=== PATIENT | female | born 1965 | race Caucasian/White ===

== ENCOUNTER → 2016-05-19 | Outpatient (REF) | payer BC ==
[~2016-05-19] MED LIST: ACET65TA; ADVAIR100 INHALATION; ALBUTEROL INHALATION; ALLEGRA PO; AMO500 PO; ASTELIN NASAL; ATENOL25 PO; BACTRIMDS PO; BEXTRA PO; CELEXA20 PO; CLARINEX PO; DARVOCET-N PO; DOXYCYC100 PO; EFFEXORXL1 PO; EFFEXORXL7 PO; FLEXERIL10 PO; FLONASESPR NASAL; IMITREX50 PO; LEXAPRO10 PO; MOTR200T4; MOTRIN600 PO; NAPROSY500 PO; NASACORT NASALLY; NASACORTAQ NASALLY; NASONEX NASAL; No Historical Meds; PATANOL OPHTH; PEPCID40 PO; PROVENTIL INHALATION; PROVENTILI PO; TUSSIONEX PO; VOLTAREN PO; ZITHROZPAK PO; ZOLOFT100 PO; ZOLOFT50 PO; [UNRECOGNIZED DRUG - OTHER]
[2016-05-19 16:21] LABS: INR 0.99
== END ==
LOC: M LABDRAW1 15:17
PROVIDERS: ATTEND Physical Medicine & Rehabilitation
DX: Z01.818 Encounter for other preprocedural examination (principal)

== ENCOUNTER → 2016-06-02 | Outpatient (CLI) | payer BC ==
--- NOTE | 2016-06-02 11:28 | REPMRS ---
Patient History Family history of breast cancer in mother at age 57. Benign excisional biopsy of the left breast, 1994. Benign excisional biopsy of the left breast, 1987. Taking unspecified hormones for 3 years. Digital Woman Screen Mammo: June 02, 2016 - Exam #: [id number] Bilateral CC and MLO view(s) were taken. Technologist: Alexandra Jane, Technologist Prior study comparison: March 17, 2015, digital woman screen mammo performed at [facility]. January 11, 2013, digital woman screen mammo performed at [facility]. FINDINGS: The breast tissue is extremely dense which could obscure a lesion on mammography. There is no evidence of cancer on this mammogram. Given the family history and dense breast parenchyma, I would recommend an MRI of the breasts. ASSESSMENT: BI-RADS/ACR category 2 mammogram. Benign finding(s). Given the family history and dense breast parenchyma, I would recommend an MRI of the breasts. Recommendation Routine screening mammogram of both breasts in 1 year (for women over age 40). This mammogram was interpreted with the aid of an FDA-approved computer-aided dectection system. Electronically Signed By: Shaheed Padilla MD 06/02/16 [id number]
== END ==
LOC: M WHC 09:24
PROVIDERS: ATTEND Nurse Practitioner Family
DX: R92.2 Inconclusive mammogram (principal); Z80.3 Family history of malignant neoplasm of breast

== ENCOUNTER → 2016-08-31 | Outpatient (CLI) | payer BC ==
[2016-08-31 13:42] LABS: ALBUMIN 4.4 GM/DL (3.2-5.2); ALBUMIN/GLOBULIN RATIO 1.29 (1.00-1.93); ALKALINE PHOSPHATASE 57 U/L (45-117); ALT/SGPT 58 U/L (12-78); ANION GAP 8 MEQ/L (8-16); AST/SGOT 26 U/L (15-37); BILIRUBIN,TOTAL 0.4 MG/DL (0.2-1.0); BLOOD UREA NITROGEN 15 MG/DL (7-18); CARBON DIOXIDE LEVEL 28 MEQ/L (21-32); CHLORIDE LEVEL 103 MEQ/L (98-107); CHOLESTEROL LEVEL 271 MG/DL (<200); CREATININE FOR GFR 0.77 MG/DL (0.55-1.02); GLOMERULAR FILTRATION RATE > 60.0 (>58); GLUCOSE, FASTING 95 MG/DL (70-105); POTASSIUM SERUM 4.9 MEQ/L (3.5-5.1); SODIUM LEVEL 139 MEQ/L (136-145); TOTAL PROTEIN 7.8 GM/DL (6.4-8.2); TRIGLYCERIDES LEVEL 316 MG/DL (<150)
[2016-08-31 13:45] LABS: MEAN CORPUSCULAR HEMOGLOBIN 31.1 pg (27.0-33.0); MEAN CORPUSCULAR HGB CONC 33.5 g/dl (32.0-36.5); MEAN CORPUSCULAR VOLUME 92.8 fl (80.0-96.0); RED CELL DISTRIBUTION WIDTH 11.9 % (11.5-14.5); WHITE BLOOD COUNT 8.1 K/mm3 (4.0-10.0)
== END ==
LOC: M SMT 08:28
PROVIDERS: ATTEND Family Medicine
DX: E78.2 Mixed hyperlipidemia (principal); Z13.0 Encounter for screening for diseases of the blood and blood-forming organs and certain disorders involving the immune mechanism

== ENCOUNTER 2017-01-07 08:56 | Outpatient (CLI) | payer BC ==
[~2017-01-07] VITALS: Ht 167.6 cm; Wt 85.5 kg
[~2017-01-07 08:56] MED LIST changes: +ALEV220T26 PO; +ESTR1DIS3 TOP; +GABA-282 PO; +LISI10TA4 PO; +MULT1TAB10 PO
[2017-01-07] MEDS ORDERED: NS 1,000 ML IV ONE (09:00)
--- NOTE | 2017-01-07 09:58 | ROOR ---
Patient Name: Karolina Silva Procedure Date: 01/07/2017 9:42 AM Date of : 1965 Age: 51 Room: [facility] Gender: Female Note Status: Finalized Procedure: Total Colonoscopy to Cecum Indications: Screening for colorectal malignant neoplasm Providers: Jose Cardoza MD Referring MD: Emily SMITH DO Requesting Provider: Medicines: Monitored Anesthesia Care Complications: No immediate complications. Procedure: Pre-Anesthesia Assessment: - The heart rate, respiratory rate, oxygen saturations, blood pressure, adequacy of pulmonary ventilation, and response to care were monitored throughout the procedure. The Colonoscope was introduced through the anus and advanced to the cecum, identified by appendiceal orifice and ileocecal valve. The colonoscopy was performed without difficulty. The patient tolerated the procedure well. The quality of the bowel preparation was excellent. Findings: The perianal and digital rectal examinations were normal. Non-bleeding internal hemorrhoids were found during retroflexion. The hemorrhoids were small and Grade I (internal hemorrhoids that do not prolapse). Multiple small and large-mouthed diverticula were found in the recto-sigmoid colon, sigmoid colon and descending colon. The exam was otherwise without abnormality on direct and retroflexion views. Impression: - Non-bleeding internal hemorrhoids. - Diverticulosis in the recto-sigmoid colon, in the sigmoid colon and in the descending colon. - The examination was otherwise normal on direct and retroflexion views. - No specimens collected. - The exam was otherwise normal to the cecum. Recommendation: - Patient has a contact number available for emergencies. The signs and symptoms of potential delayed complications were discussed with the patient. Return to normal activities tomorrow. Written discharge instructions were provided to the patient. - High fiber diet. - Discharge patient to home. - Continue present medications. - Repeat colonoscopy in 10 years for screening purposes. - Return to referring physician. - The findings and recommendations were discussed with the patient's family. Jose Cardoza MD Jose Cardoza MD 01/07/2017 9:58:22 AM This report has been signed electronically. Number of Addenda: 0 Note Initiated On: 01/07/2017 9:42 AM Estimated Blood Loss: Estimated blood loss: none.
[2017-01-07] MEDS ORDERED: PROPOFOL 200 MG/20 ML VIAL As Ordered ONE (10:03)
[2017-01-07 10:27] VITALS: BP 118/76
== END 2017-01-07 10:29 | disposition home or self-care (01) ==
LOC: M OPP 08:56
PROVIDERS: ATTEND Internal Medicine Gastroenterology
DX: Z12.11 Encounter for screening for malignant neoplasm of colon (principal); K64.0 First degree hemorrhoids; K57.30 Diverticulosis of large intestine without perforation or abscess without bleeding; I10 Essential (primary) hypertension; Z80.3 Family history of malignant neoplasm of breast; Z79.899 Other long term (current) drug therapy

== ENCOUNTER → 2017-07-08 | Outpatient (CLI) | payer BC | LOC: M WHC 12:58 | DX: Z12.31 Encounter for screening mammogram for malignant neoplasm of breast (principal) | CPT/HCPCS: 77067 ==

== ENCOUNTER → 2017-08-12 | Outpatient (CLI) | payer BC ==
[2017-08-12 08:18] LABS: BASO # 0.1 10^3/uL (0.0-0.2); BASO % 0.7 % (0.0-1.0); EOS # 0.4 10^3/uL (0.0-0.50); EOS % 5.2 % (0.0-3.0); HEMATOCRIT 37.9 % (36.0-47.0); HEMOGLOBIN 12.6 g/dl (12.0-15.5); IMMATURE GRANULOCYTE % 0.3 % (0-3.0); LYMPH # 3.4 10^3/uL (1.5-4.5); LYMPH % 46.5 % (24.0-44.0); MEAN CORPUSCULAR HEMOGLOBIN 30.7 pg (27.0-33.0); MEAN CORPUSCULAR HGB CONC 33.2 g/dl (32.0-36.5); MEAN CORPUSCULAR VOLUME 92.4 fl (80.0-96.0); MONO # 0.5 10^3/uL (0.0-0.8); MONO % 6.7 % (0.0-5.0); NEUTROPHILS % 40.6 % (36.0-66.0); PLATELET COUNT, AUTOMATED 274 10^3/uL (150-450); RED CELL DISTRIBUTION WIDTH 11.9 % (11.5-14.5); WHITE BLOOD COUNT 7.3 10^3/uL (4.0-10.0)
[2017-08-12 09:00] LABS: ALBUMIN 4.3 GM/DL (3.2-5.2); ALBUMIN/GLOBULIN RATIO 1.23 (1.00-1.93); ALKALINE PHOSPHATASE 50 U/L (45-117); ALT/SGPT 26 U/L (12-78); ANION GAP 6 MEQ/L (8-16); AST/SGOT 15 U/L (7-37); BILIRUBIN,TOTAL 0.4 MG/DL (0.2-1.0); BLOOD UREA NITROGEN 23 MG/DL (7-18); CARBON DIOXIDE LEVEL 28 MEQ/L (21-32); CHLORIDE LEVEL 106 MEQ/L (98-107); CHOLESTEROL LEVEL 230 MG/DL (<200); CHOLESTEROL RISK RATIO 4.423 (<5); CREATININE FOR GFR 0.82 MG/DL (0.55-1.30); FREE T4 0.82 NG/DL (0.76-1.46); GLOMERULAR FILTRATION RATE > 60.0 (>51); GLUCOSE, FASTING 100 MG/DL (70-100); HDL CHOLESTEROL 52 MG/DL (>40); LDL CHOLESTEROL 137.8 MG/DL (<100); NON-HDL-C 178 MG/DL; POTASSIUM SERUM 4.7 MEQ/L (3.5-5.1); SODIUM LEVEL 140 MEQ/L (136-145); TOTAL PROTEIN 7.8 GM/DL (6.4-8.2); TRIGLYCERIDES LEVEL 201 MG/DL (<150)
== END ==
LOC: M LAB 07:02
DX: Z13.220 Encounter for screening for lipoid disorders (principal)
CPT/HCPCS: 84443

== ENCOUNTER → 2017-11-04 | Outpatient (REF) | payer OTHER, BC ==
[2017-11-04 12:22] LABS: CREATININE FOR GFR 0.77 MG/DL (0.55-1.30); GLOMERULAR FILTRATION RATE > 60.0 (>51)
[2017-11-04 12:22] LABS: BLOOD UREA NITROGEN 17 MG/DL (7-18)
== END ==
LOC: M LABDRAW1 11:42
DX: M47.817 Spondylosis without myelopathy or radiculopathy, lumbosacral region (principal)

== ENCOUNTER → 2017-11-11 | Outpatient (REF) | payer OTHER, BC ==
[2017-11-11 17:04] LABS: CREATININE FOR GFR 0.81 MG/DL (0.55-1.30); GLOMERULAR FILTRATION RATE > 60.0 (>51)
[2017-11-11 17:04] LABS: BLOOD UREA NITROGEN 18 MG/DL (7-18)
== END ==
LOC: M LABDRAW1 15:30
DX: M47.817 Spondylosis without myelopathy or radiculopathy, lumbosacral region (principal)

== ENCOUNTER → 2017-12-07 | Outpatient (REF) | payer BC ==
[2017-12-07 19:02] LABS: TOTAL 25(OH) VITAMIN D 41.8 NG/ML (30.0-100.0)
[2017-12-07 19:05] LABS: FREE T4 0.95 NG/DL (0.76-1.46)
== END ==
LOC: M LABDRAW1 17:21
DX: E55.9 Vitamin D deficiency, unspecified (principal)
CPT/HCPCS: 84443

== ENCOUNTER → 2018-01-09 | Outpatient (CLI) | payer BC ==
[~2018-01-09] MED LIST changes: -ACET65TA; -ADVAIR100 INHALATION; -ALBUTEROL INHALATION; -ALEV220T26 PO; -ALLEGRA PO; -AMO500 PO; -ASTELIN NASAL; -ATENOL25 PO; -BACTRIMDS PO; -BEXTRA PO; -CELEXA20 PO; -CLARINEX PO; -DARVOCET-N PO; -DOXYCYC100 PO; -EFFEXORXL1 PO; -EFFEXORXL7 PO; -ESTR1DIS3 TOP; -FLEXERIL10 PO; -FLONASESPR NASAL; -GABA-282 PO; -IMITREX50 PO; -LEXAPRO10 PO; -LISI10TA4 PO; -MOTR200T4; -MOTRIN600 PO; -MULT1TAB10 PO; -NAPROSY500 PO; -NASACORT NASALLY; -NASACORTAQ NASALLY; -NASONEX NASAL; -No Historical Meds; -PATANOL OPHTH; -PEPCID40 PO; +PROHANCE 279.3MG/ML 15ML VIAL (A9576) As Ordered; +PROHANCE 279.3MG/ML 5ML VIAL (A9576) As Ordered; -PROVENTIL INHALATION; -PROVENTILI PO; -TUSSIONEX PO; -VOLTAREN PO; -ZITHROZPAK PO; -ZOLOFT100 PO; -ZOLOFT50 PO; -[UNRECOGNIZED DRUG - OTHER]
== END ==
LOC: M RAD 09:46
DX: R92.2 Inconclusive mammogram (principal); Z91.89 Other specified personal risk factors, not elsewhere classified
CPT/HCPCS: A9576

== ENCOUNTER → 2018-04-03 | Outpatient (REF) | payer BC ==
[~2018-04-03] MED LIST changes: +ACET65TA; +ADVAIR100 INHALATION; +ALBUTEROL INHALATION; +ALEV220T26 PO; +ALLEGRA PO; +AMO500 PO; +ASTELIN NASAL; +ATENOL25 PO; +BACTRIMDS PO; +BEXTRA PO; +CELEXA20 PO; +CLARINEX PO; +DARVOCET-N PO; +DOXYCYC100 PO; +EFFEXORXL1 PO; +EFFEXORXL7 PO; +ESTR1DIS3 TOP; +FLEXERIL10 PO; +FLONASESPR NASAL; +GABA-843 PO; +IMITREX50 PO; +LEXAPRO10 PO; +LISI10TA4 PO; +MOTR200T4; +MOTRIN600 PO; +MULT1TAB10 PO; +NAPROSY500 PO; +NASACORT NASALLY; +NASACORTAQ NASALLY; +NASONEX NASAL; +No Historical Meds; +PATANOL OPHTH; +PEPCID40 PO; -PROHANCE 279.3MG/ML 15ML VIAL (A9576) As Ordered; -PROHANCE 279.3MG/ML 5ML VIAL (A9576) As Ordered; +PROVENTIL INHALATION; +PROVENTILI PO; +TUSSIONEX PO; +VOLTAREN PO; +ZITHROZPAK PO; +ZOLOFT100 PO; +ZOLOFT50 PO; +[UNRECOGNIZED DRUG - OTHER]
[2018-04-03 12:38] LABS: BASO # 0.1 10^3/uL (0.0-0.2); BASO % 0.9 % (0.0-1.0); EOS # 0.4 10^3/uL (0.0-0.50); EOS % 5.8 % (0.0-3.0); HEMATOCRIT 39.1 % (36.0-47.0); HEMOGLOBIN 12.7 g/dl (12.0-15.5); LYMPH # 3.1 10^3/uL (1.5-4.5); MEAN CORPUSCULAR HEMOGLOBIN 30.4 pg (27.0-33.0); MEAN CORPUSCULAR HGB CONC 32.5 g/dl (32.0-36.5); MEAN CORPUSCULAR VOLUME 93.5 fl (80.0-96.0); MONO # 0.5 10^3/uL (0.0-0.8); MONO % 6.8 % (0.0-5.0); NEUTROPHILS # 2.9 10^3/uL (1.8-7.7); NEUTROPHILS % 42.2 % (36.0-66.0); PLATELET COUNT, AUTOMATED 272 10^3/uL (150-450); RED BLOOD COUNT 4.18 10^6/uL (4.00-5.40); WHITE BLOOD COUNT 6.9 10^3/uL (4.0-10.0)
[2018-04-03 12:48] LABS: ALT/SGPT 40 U/L (12-78); BILIRUBIN,TOTAL 0.4 MG/DL (0.2-1.0); BLOOD UREA NITROGEN 16 MG/DL (7-18); CALCIUM LEVEL 8.9 MG/DL (8.5-10.1); CARBON DIOXIDE LEVEL 28 MEQ/L (21-32); CHLORIDE LEVEL 103 MEQ/L (98-107); CHOLESTEROL LEVEL 240 MG/DL (<200); CHOLESTEROL RISK RATIO 5.714 (<5); CREATININE FOR GFR 0.72 MG/DL (0.55-1.30); FREE T4 1.06 NG/DL (0.76-1.46); GLOMERULAR FILTRATION RATE > 60.0 (>51); GLUCOSE, FASTING 96 MG/DL (70-100); HDL CHOLESTEROL 42 MG/DL (>40); LDL CHOLESTEROL 140 MG/DL (<100); NON-HDL-C 198 MG/DL; POTASSIUM SERUM 4.6 MEQ/L (3.5-5.1); SODIUM LEVEL 139 MEQ/L (136-145); TOTAL PROTEIN 7.3 GM/DL (6.4-8.2); TRIGLYCERIDES LEVEL 289 MG/DL (<150)
[2018-04-03 12:50] LABS: TOTAL 25(OH) VITAMIN D 47.2 NG/ML (30.0-100.0)
== END ==
LOC: M LABDRAW1 09:13
PROVIDERS: ATTEND Family Medicine
DX: E03.9 Hypothyroidism, unspecified (principal); E55.9 Vitamin D deficiency, unspecified; I10 Essential (primary) hypertension; E78.2 Mixed hyperlipidemia

== ENCOUNTER → 2018-08-24 | Outpatient (REF) | payer BC, OTHER ==
[2018-08-24 13:21] LABS: BLOOD UREA NITROGEN 17 MG/DL (7-18); GLOMERULAR FILTRATION RATE > 60.0 (>51)
== END ==
LOC: M LABDRAW1 12:01
PROVIDERS: ATTEND Physician Assistant
DX: M47.817 Spondylosis without myelopathy or radiculopathy, lumbosacral region (principal)

== ENCOUNTER → 2018-09-25 | Outpatient (REF) | payer BC ==
[2018-09-27 14:09] LABS: HPV HYBRID CAPTURE II Negative (Negative)
== END ==
LOC: M SFHCWAGY 11:29
PROVIDERS: ATTEND Nurse Practitioner Family
DX: Z12.72 Encounter for screening for malignant neoplasm of vagina (principal)
CPT/HCPCS: 87624; G0123

== ENCOUNTER → 2019-05-03 | Outpatient (CLI) | payer BC ==
[~2019-05-03] MED LIST changes: +PROHANCE 279.3MG/ML 15ML VIAL (A9576) As Ordered ONE; +PROHANCE 279.3MG/ML 5ML VIAL (A9576) As Ordered ONE
--- NOTE | 2019-05-03 11:11 | REP ---
BILATERAL BREAST MRI STUDY WITHOUT AND WITH IV GADOLINIUM: HISTORY: High risk breast cancer screening. Comparison mammography July 08, 2017. Comparison breast MRI study January 09, 2018. TECHNIQUE: Three Beth MRI imaging was performed with a dedicated breast coil. Axial, coronal, and sagittal T1 and T2-weighted scans were obtained with and without fat saturation in the usual fashion. The study includes dynamically acquired post gadolinium enhanced imaging subtraction imaging. Maximal intensity projection and multiplanar re-formation imaging is included as well. The study was interpreted with the aid of BDNAD, an FDA approved computer-aided detection (CAD) software program, on a dedicated breast MRI work station. The gadolinium enhancement dose is 18 mL of intravenous ProHance. FINDINGS: There is an extensive fibroglandular tissue pattern corresponding with the dense breast tissue mammographically. There is mild background parenchymal enhancement. There is no evidence of significant cystic change or axillary or internal mammary adenopathy on either side. No suspicious morphologic abnormality has developed in either breast. There is no area of suspicious contrast enhancement and washout in either breast on dynamically acquired post contrast images. Subtraction images show no additional abnormality. IMPRESSION: Stable BIRADS category 1 negative findings. Electronically Signed by Giuseppe Rae MD 05/03/2019 11:38 A
== END ==
LOC: M RAD 08:53
PROVIDERS: ATTEND Nurse Practitioner Family
DX: Z91.89 Other specified personal risk factors, not elsewhere classified (principal)
CPT/HCPCS: A9576; C8908

== ENCOUNTER → 2019-09-28 | Outpatient (CLI) | payer BC ==
[~2019-09-28] MED LIST changes: -PROHANCE 279.3MG/ML 15ML VIAL (A9576) As Ordered ONE; -PROHANCE 279.3MG/ML 5ML VIAL (A9576) As Ordered ONE
--- NOTE | 2019-09-28 14:30 | REP ---
LEFT HAND, FOUR VIEWS: There is no evidence of an acute fracture, dislocation or intrinsic bone disease. IMPRESSION: No fracture or dislocation. Electronically Signed by Shaheed Padilla MD 10/02/2019 06:34 P
== END ==
LOC: M ADAMS 12:56
PROVIDERS: ATTEND Physician Assistant
DX: M25.542 Pain in joints of left hand (principal)

== ENCOUNTER → 2020-12-23 | Outpatient (CLI) | payer OTHER ==
[~2020-12-23] MED LIST changes: +GABA-282 PO; -GABA-843 PO; +LISI10TA22 PO; -LISI10TA4 PO
--- NOTE | 2020-12-23 09:15 | REPVR ---
PROCEDURE INFORMATION: Exam: MR Lumbar Spine Without Contrast Exam date and time: 12/23/2020 8:09 AM Age: 55 years old Clinical indication: Low back pain; Additional info: Spinal stenosis, R/O hnp TECHNIQUE: Imaging protocol: Multiplanar magnetic resonance images of the lumbar spine without intravenous contrast. COMPARISON: MRI-Spine, L.S. without con 01/07/2016 11:36 AM FINDINGS: Vertebrae: Evaluation of the marrow demonstrates no evidence of acute fracture line, high-grade compression deformity, worrisome malalignment, or marrow edema. Stable retrolisthesis at L5-S1 with Modic type 3 changes in the endplates here. Moderate posterior element hypertrophic changes at multiple levels. Generally benign marrow signal on the T1 weighted images. Spinal epidural space: No evidence of arachnoiditis or epidural fluid. Spinal cord: The conus terminates at L2 without abnormal cord signal. T12-L1: At T12-L1 there is mild bulging of the disc without significant mass effect, comparable to the previous. L1-L2: At L1-L2, minimal bulging disc is present without significant mass effect. L2-L3: At L2-L3, minimal bulging disc is present without significant mass effect. L3-L4: At L3-L4, I see no significant abnormality. L4-L5: At L4-L5, minimal bulging disc is present right greater than left extending into the foramina on the right with mild to moderate foraminal encroachment, new relative to the prior. L5-S1: At L5-S1, a broadly bulging disc is approaching but not definitively contacting the traversing S1 nerve roots bilaterally. Mild central stenosis with moderate to severe left and moderate right foraminal encroachment, all increased relative to the prior. Sacrum/coccyx: Hemangioma along the left side of S1. Symmetric SI joints. Soft tissues: Paraspinal muscular atrophy without paraspinal mass. Disc desiccation and loss of the disc space at L5-S1. IMPRESSION: 1. New disc abnormality with mass effect in the foramina at L4-L5 on the right. 2. Worsening disc abnormality at L5-S1 with increased mass effect. 3. Degenerative changes. 4. No abnormal cord signal. Electronically signed by: Km Mascorro On 12/23/2020 09:15:03 AM
== END ==
LOC: M RAD 07:34
PROVIDERS: ATTEND Physician Assistant
DX: M48.07 Spinal stenosis, lumbosacral region (principal); M51.36 Other intervertebral disc degeneration, lumbar region

== ENCOUNTER 2021-02-11 09:53 | Outpatient (CLI) | payer BC ==
[~2021-02-11] VITALS: Ht 165.7 cm; Wt 93.0 kg
[~2021-02-11 09:53] MED LIST changes: +ALBUTEROL 90 MCG/ACT 8GM HFA INHALER INH PRN; +ALBUTEROL SULFATE 2.5 MG/0.5 ML INH NEB SOLN INH PRN; +EPINEPHrine INJ 1 MG/ML 1ML AMP IM PRN; +NS 1,000 ML IV SCH; +diphenhydrAMINE 50MG/ML VIAL (J1200) IV PRN; +methylPREDNISolone 125MG 2ML VIAL IV PRN
[2021-02-11] MEDS ORDERED: BAMLANIVIMAB 700 MG, ETESEVIMAB 1,400 MG in NS 250 ML IV ONE (10:30)
[2021-02-11 10:52] VITALS: BP 132/73
[2021-02-11 11:22] VITALS: BP 136/72
[2021-02-11 11:52] VITALS: BP 122/73
[2021-02-11 12:52] VITALS: BP 131/86
== END 2021-02-11 12:52 | disposition home or self-care (01) ==
LOC: M OPCLI4PR 09:53
PROVIDERS: ATTEND Physician Assistant
DX: U07.1 COVID-19 (principal)

== ENCOUNTER → 2021-05-20 | Outpatient (REF) ==
[~2021-05-20] MED LIST changes: -ALBUTEROL 90 MCG/ACT 8GM HFA INHALER INH PRN; -ALBUTEROL SULFATE 2.5 MG/0.5 ML INH NEB SOLN INH PRN; -EPINEPHrine INJ 1 MG/ML 1ML AMP IM PRN; -NS 1,000 ML IV SCH; -diphenhydrAMINE 50MG/ML VIAL (J1200) IV PRN; -methylPREDNISolone 125MG 2ML VIAL IV PRN
== END ==
LOC: M LABSMTC 12:39
PROVIDERS: ATTEND Family Medicine
DX: Z11.52 Encounter for screening for COVID-19 (principal); Z20.822 Contact with and (suspected) exposure to COVID-19

== ENCOUNTER → 2021-09-23 | Outpatient (CLI) | payer BC ==
[2021-09-23 07:20] LABS: BASO # 0.1 10^3/uL (0.0-0.2); BASO % 0.7 % (0.0-1.0); EOS # 0.3 10^3/uL (0.0-0.5); EOS % 3.6 % (0.0-3.0); HEMOGLOBIN 13.4 g/dl (12.0-15.5); LYMPH % 45.3 % (24.0-44.0); MEAN CORPUSCULAR HEMOGLOBIN 30.9 pg (27.0-33.0); MEAN CORPUSCULAR HGB CONC 32.7 g/dl (32.0-36.5); MEAN CORPUSCULAR VOLUME 94.7 fl (80.0-96.0); MONO # 0.7 10^3/uL (0.0-0.8); MONO % 7.8 % (2.0-8.0); NEUTROPHILS # 3.7 10^3/uL (1.5-8.5); NEUTROPHILS % 42.1 % (36.0-66.0); PLATELET COUNT, AUTOMATED 268 10^3/uL (150-450); RED BLOOD COUNT 4.33 10^6/uL (4.00-5.40); WHITE BLOOD COUNT 8.8 10^3/uL (4.0-10.0)
[2021-09-23 08:08] LABS: ALT/SGPT 65 U/L (12-78); BILIRUBIN,TOTAL 0.4 MG/DL (0.2-1.0); BLOOD UREA NITROGEN 18 MG/DL (7-18); CALCIUM LEVEL 9.1 MG/DL (8.5-10.1); CARBON DIOXIDE LEVEL 29 MEQ/L (21-32); CHLORIDE LEVEL 103 MEQ/L (98-107); CHOLESTEROL LEVEL 249 MG/DL (<200); CHOLESTEROL RISK RATIO 5.928 (<5); CREATININE FOR GFR 0.78 MG/DL (0.55-1.30); GLOMERULAR FILTRATION RATE > 60.0 (>51); GLUCOSE, FASTING 110 MG/DL (70-100); HDL CHOLESTEROL 42 MG/DL (>40); LDL CHOLESTEROL 151 MG/DL (<100); NON-HDL-C 207 MG/DL; POTASSIUM SERUM 4.7 MEQ/L (3.5-5.1); SODIUM LEVEL 136 MEQ/L (136-145); TRIGLYCERIDES LEVEL 280 MG/DL (<150)
[2021-09-23 08:11] LABS: TOTAL 25(OH) VITAMIN D 53.3 NG/ML (30.0-100.0)
== END ==
LOC: M LAB 06:40
PROVIDERS: ATTEND Physician Assistant
DX: E55.9 Vitamin D deficiency, unspecified (principal); E78.2 Mixed hyperlipidemia; E03.9 Hypothyroidism, unspecified

== ENCOUNTER → 2022-05-03 | Outpatient (REF) ==
[2022-05-03 11:53] LABS: RSV AMPLIFICATION NEGATIVE (NEGATIVE)
== END ==
LOC: M EMP 09:13
PROVIDERS: ATTEND Family Medicine
DX: Z11.52 Encounter for screening for COVID-19 (principal)

== ENCOUNTER → 2022-05-11 | Outpatient (CLI) | payer BC ==
[2022-05-11 07:50] LABS: HEMOGLOBIN A1c 5.5 % (4.0-6.0)
[2022-05-11 07:57] LABS: ALBUMIN 4.4 G/DL (3.2-5.2); ALKALINE PHOSPHATASE 87 U/L (46-116); ALT/SGPT 57 U/L (7.0-40); AST/SGOT 29 U/L (<34); BILIRUBIN,TOTAL 0.5 MG/DL (0.3-1.2); BLOOD UREA NITROGEN 16 MG/DL (9-23); CALCIUM LEVEL 10.2 MG/DL (8.5-10.1); CARBON DIOXIDE LEVEL 28 MMOL/L (20-31); CHLORIDE LEVEL 102 MMOL/L (98-107); CREATININE FOR GFR 0.66 MG/DL (0.55-1.30); GLOMERULAR FILTRATION RATE > 60.0 (>51); GLUCOSE, FASTING 108 MG/DL (60-100); POTASSIUM SERUM 4.5 MMOL/L (3.5-5.1); SODIUM LEVEL 138 MMOL/L (136-145); TOTAL PROTEIN 7.5 G/DL (5.7-8.2)
[2022-05-11 07:58] LABS: THYROID STIMULATING HORMONE 2.718 uIU/ML (0.55-4.78)
[2022-05-11 07:59] LABS: FREE T4 0.99 NG/DL (0.89-1.76)
== END ==
LOC: M LAB 06:36
PROVIDERS: ATTEND Physician Assistant
DX: R73.01 Impaired fasting glucose (principal); E03.9 Hypothyroidism, unspecified

== ENCOUNTER → 2023-07-11 | Outpatient (CLI) | payer BC ==
[~2023-07-11] MED LIST changes: +PROHANCE 279.3MG/ML 15ML VIAL ONE; +PROHANCE 279.3MG/ML 5ML VIAL ONE
== END ==
LOC: M PLAIMG 14:35
PROVIDERS: ATTEND Physician Assistant
DX: Z12.31 Encounter for screening mammogram for malignant neoplasm of breast (principal)
CPT/HCPCS: A9576; C8908

== ENCOUNTER → 2023-07-16 | Outpatient (CLI) | payer OTHER ==
[~2023-07-16] MED LIST changes: -PROHANCE 279.3MG/ML 15ML VIAL ONE; -PROHANCE 279.3MG/ML 5ML VIAL ONE
== END ==
LOC: M RAD 10:34
PROVIDERS: ATTEND Physician Assistant
DX: M51.17 Intervertebral disc disorders with radiculopathy, lumbosacral region (principal)

== ENCOUNTER → 2023-07-21 | Outpatient (CLI) | payer BC | LOC: M RAD 15:36 | PROVIDERS: ATTEND Physician Assistant | DX: Z87.891 Personal history of nicotine dependence (principal) ==

== ENCOUNTER → 2023-12-06 | Outpatient (REF) | LOC: M EMP 08:50 | PROVIDERS: ATTEND Family Medicine | DX: Z01.89 Encounter for other specified special examinations (principal) ==

== ENCOUNTER → 2024-05-28 | Outpatient (REF) | payer BC ==
[~2024-05-28] MED LIST changes: +GABA-1172 PO; -GABA-282 PO
[2024-05-28 14:44] LABS: BASO % 0.5 % (0.0-1.0); EOS # 0.3 10^3/uL (0.0-0.5); EOS % 3.3 % (0.0-3.0); HEMATOCRIT 44.3 % (36.0-47.0); HEMOGLOBIN 14.2 g/dl (12.0-15.5); LYMPH # 3.8 10^3/uL (1.5-5.0); MEAN CORPUSCULAR HEMOGLOBIN 30.7 pg (27.0-33.0); MEAN CORPUSCULAR HGB CONC 32.1 g/dl (32.0-36.5); MEAN CORPUSCULAR VOLUME 95.9 fl (80.0-96.0); MONO # 0.7 10^3/uL (0.0-0.8); MONO % 8.3 % (2.0-8.0); NEUTROPHILS # 3.8 10^3/uL (1.5-8.5); NEUTROPHILS % 43.6 % (36.0-66.0); PLATELET COUNT, AUTOMATED 270 10^3/uL (150-450); RED BLOOD COUNT 4.62 10^6/uL (4.00-5.40); WHITE BLOOD COUNT 8.7 10^3/uL (4.0-10.0)
[2024-05-28 14:56] LABS: HEMOGLOBIN A1c 5.3 % (4.0-6.0)
[2024-05-28 15:40] LABS: ALBUMIN 4.3 G/DL (3.2-5.2); ALKALINE PHOSPHATASE 68 U/L (35-104); ALT/SGPT 39 U/L (7.0-40); AST/SGOT 25 U/L (<34); BILIRUBIN,TOTAL 0.5 MG/DL (0.3-1.2); BLOOD UREA NITROGEN 16 MG/DL (9-23); CALCIUM LEVEL 9.1 MG/DL (8.5-10.1); CARBON DIOXIDE LEVEL 28 MMOL/L (20-31); CHLORIDE LEVEL 102 MMOL/L (98-107); CHOLESTEROL LEVEL 173 MG/DL (<200); CHOLESTEROL RISK RATIO 3.15 (<5); CREATININE FOR GFR 0.58 MG/DL (0.55-1.30); GLOMERULAR FILTRATION RATE > 60.0 (>51); GLUCOSE, FASTING 79 MG/DL (60-100); HDL CHOLESTEROL 54.8 MG/DL (>40); LDL CHOLESTEROL 71.4 MG/DL (<100); NON-HDL-C 118.2 MG/DL; POTASSIUM SERUM 5.1 MMOL/L (3.5-5.1); SODIUM LEVEL 139 MMOL/L (136-145); TOTAL PROTEIN 7.7 G/DL (5.7-8.2); TRIGLYCERIDES LEVEL 234 MG/DL (<150)
[2024-05-28 15:42] LABS: THYROID STIMULATING HORMONE 2.429 uIU/ML (0.55-4.78)
[2024-05-28 15:44] LABS: TOTAL 25(OH) VITAMIN D 75.4 NG/ML (20.0-100.0)
== END ==
LOC: M LABDRWAD 12:49
PROVIDERS: ATTEND Physician Assistant
DX: I10 Essential (primary) hypertension (principal); E55.9 Vitamin D deficiency, unspecified; R73.01 Impaired fasting glucose; E03.9 Hypothyroidism, unspecified